=== PATIENT | female | born 1985 | race Caucasian/White ===

== ENCOUNTER 2016-03-12 17:34 | Emergency (ER) | payer OTHER ==
[2016-03-12] MEDS ORDERED: OPTIRAY 350 100 ML VIAL HMH IV ONE (17:35)
[2016-03-12] MEDS ORDERED: PROMETHAZINE 25 MG/ML VIAL ONE (21:03)
[2016-03-12] MEDS ORDERED: KETOROLAC 30 MG/ML VIAL ONE (21:03)
[2016-03-12] MEDS ORDERED: SODIUM CHLORIDE 0.9% 50 ML IV ONE (21:03)
[2016-03-12] MEDS ORDERED: MORPHINE 4 MG/ML SYR ONE ×2 (21:03→22:54)
[2016-03-12] MEDS ORDERED: SODIUM CHLORIDE 0.9% 1,000 ML ONE (21:03)
== END 2016-03-13 00:28 | disposition home or self-care (01) ==
LOC: ER 17:34
CPT/HCPCS: 36415 ×2; 74177 ×2; 80053 ×2; 81001 ×2; 83690 ×2; 84703 ×2; 85025 ×2; 87088 ×2; 96361 ×2; 96374 ×2; 96375 ×2; 96376 ×2; 99284; J1885; J2270; J2550; Q9967

== ENCOUNTER 2016-04-07 16:47 | Emergency (ER) | payer OTHER ==
[2016-04-07] MEDS ORDERED: DILAUDID 1 MG/ML AMP ONE (18:57)
== END 2016-04-07 19:18 | disposition home or self-care (01) ==
LOC: ER 16:47
DX: K86.1 Other chronic pancreatitis (principal); Z87.19 Personal history of other diseases of the digestive system
CPT/HCPCS: 36415; 71010; 80053; 81003; 83690; 84703; 85025; 96372; 99284; J1170